=== PATIENT | female | born 1995 ===

== ENCOUNTER 2017-02-19 20:43 | Emergency (ER) | payer BC, OTHER ==
[2017-02-19 20:55] VITALS: BP 124/87; PULSE 86; RESP 18; TEMP 98; O2SAT 100
--- NOTE | 2017-02-19 21:15 | C.PDOC ---
History Of Present Illness 21 yo female w/o significant PMHx come in for evaluation of palmar discoloration intermittent for past few months. Pt reports, "noted some brown spots on her left palm few days ago, comes and goes". Otherwise, pt denies any other associated symptoms or any other active complaints-fever, chills, recent illness or abx use, headache, dizziness, visual changes, focal deficits, neck pain, CP, SOB, dyspnea, diaphoresis, abd. pain, N/V/D, UTI sx. At present time, pt reports, skin discoloration moderate improved " and not much to show". Ambulate to ED for evaluation, not in any apparent distress. Time Seen by Provider: 02/19/17 20:57 Chief Complaint (Nursing): Abnormal Skin Integrity History Per: Patient Onset/Duration Of Symptoms: Intermittent Episodes Past Medical History Reviewed: Historical Data, Nursing Documentation, Vital Signs Vital Signs: Last Vital Signs Temp 98 F 02/19/17 20:52 Pulse 86 02/19/17 20:52 Resp 18 02/19/17 20:52 BP 124/87 02/19/17 20:52 Pulse Ox 100 02/19/17 20:52 Surgical History: Family History: States: Unknown Family Hx - Social History Hx Tobacco Use: No Hx Alcohol Use: Yes Hx Substance Use: No - Immunization History Hx Tetanus Toxoid Vaccination: (UNK) Hx Influenza Vaccination: No Hx Pneumococcal Vaccination: No Review Of Systems Except As Marked, All Systems Reviewed And Found Negative. Constitutional: Negative for: Fever, Chills Eyes: Negative for: Vision Change, Redness ENT: Negative for: Throat Pain Cardiovascular: Negative for: Chest Pain Respiratory: Negative for: Cough, Shortness of Breath Gastrointestinal: Negative for: Nausea, Vomiting, Abdominal Pain, Diarrhea Genitourinary: Negative for: Dysuria Musculoskeletal: Negative for: Neck Pain, Back Pain Skin: Positive for: Rash Neurological: Negative for: Weakness, Numbness, Altered Mental Status, Headache , Dizziness Physical Exam - Physical Exam Appears: Well, No Acute Distress Skin: Normal Color, Warm, Dry, Other (one small light yellow spot/skin discoloration note dto Left palm. NO edema, no erythema, no flactulance.) Eye(s): bilateral: PERRL Nose: No Discharge Oral Mucosa: Moist, No Drooling Tongue: Normal Appearing Lips: Normal Appearing Throat: Normal Neck: Supple Cardiovascular: Rhythm Regular Respiratory: Normal Breath Sounds Gastrointestinal/Abdominal: Normal Exam, Soft, No Tenderness Back: No CVA Tenderness Extremity: Normal ROM (Left hand, no neurovascular deficits.), No Tenderness, Capillary Refill (less than 2sec to left hand), No Deformity Neurological/Psych: Oriented x3, Normal Speech ED Course And Treatment O2 Sat by Pulse Oximetry: 100 Pulse Ox Interpretation: Normal Progress Note: On re-evaluation, pt is afebrile, hemodynamicaly stable. Non- toxic. PulsEOx 100% RA. ENT: no acute finidngs. neck: (-) meningeal sign. Lungs: CTA B/L, BS equal B/L. SKin: small skin disoloration noted to left palm. NO cellulitis. FAROM, no neurovascular deficist to Left hand. Pt advised and ref. to f/u with PMD, Derm in 2-3 days for re-eval. return to ED if any worsening or new changes. Disposition Counseled Patient/Family Regarding: Diagnosis, Need For Followup - Disposition Referrals: Non [facility] Provider, [Primary Care Provider] - [facility] [Outside] Disposition: HOME/ ROUTINE Disposition Time: 21:11 Condition: STABLE Instructions: Acute Rash (ED) - Clinical Impression Clinical Impression: Rash
== END 2017-02-19 21:16 | disposition home or self-care (01) ==
LOC: C.ER 20:43 → SUPCPDRO 20:43 → C.ER 21:16
DX: R21 Rash and other nonspecific skin eruption (principal)

== ENCOUNTER 2017-06-08 19:46 | Emergency (ER) | payer BC, OTHER ==
[2017-06-08 20:02] VITALS: TEMP 98; O2SAT 100
[2017-06-08 20:52] LABS: RBC URINE 2 /hpf (0-3); URINE BACTERIA OCC (<OCC); URINE BILIRUBIN NEGATIVE (NEGATIVE); URINE BLOOD NEGATIVE (NEGATIVE); URINE COLOR Yellow (YELLOW); URINE GLUCOSE (UA) NORMAL (Normal); URINE KETONE NEGATIVE (NEGATIVE); URINE LEUKOCYTE ESTERASE NEG Leu/uL (Negative); URINE PROTEIN NEGATIVE (NEGATIVE); WBC URINE 3 /hpf (0-5)
--- NOTE | 2017-06-08 21:26 | C.PDOC ---
History Of Present Illness The patient presents today for evaluation of right lower quadrant abdominal pain , present for the past couple days. She reports the pain is 4/10 and describes it as dull and aching. She denies associated fever, chills, nausea, vomiting, dysuria. She offers no other medical complaints. Time Seen by Provider: 06/08/17 21:25 Chief Complaint (Nursing): Abdominal Pain History Per: Patient History/Exam Limitations: no limitations Onset/Duration Of Symptoms: Days Current Symptoms Are (Timing): Still Present Severity: Moderate Pain Scale Rating Of: 4 Location Of Pain/Discomfort: RLQ Radiation Of Pain To:: None Quality Of Discomfort: Dull, Aching, "Pain" Associated Symptoms: denies: Fever, Chills, Nausea, Vomiting, Urinary Symptoms Exacerbating Factors: None Alleviating Factors: None Recent travel outside of the [place]: No Additional History Per: Patient Abnormal Vaginal Bleeding: No Past Medical History Reviewed: Historical Data, Nursing Documentation, Vital Signs Vital Signs: Last Vital Signs Temp 98.0 F 06/08/17 19:59 Pulse 70 06/08/17 23:16 Resp 16 06/08/17 23:16 BP 99/63 L 06/08/17 23:16 Pulse Ox 100 06/08/17 23:19 - Medical History PMH: No Chronic Diseases Surgical History: Family History: States: No Known Family Hx, Unknown Family Hx - Social History Hx Tobacco Use: No Hx Alcohol Use: Yes Hx Substance Use: No - Immunization History Hx Tetanus Toxoid Vaccination: (UNK) Hx Influenza Vaccination: No Hx Pneumococcal Vaccination: No Review Of Systems Constitutional: Negative for: Fever, Chills Gastrointestinal: Positive for: Abdominal Pain. Negative for: Nausea, Vomiting Genitourinary: Negative for: Dysuria Physical Exam - Physical Exam Appears: Non-toxic, No Acute Distress Skin: Warm, Dry Head: Normacephalic Oral Mucosa: Moist Neck: Supple Cardiovascular: Rhythm Regular Respiratory: No Decreased Breath Sounds, No Accessory Muscle Use Gastrointestinal/Abdominal: Bowel Sounds, Soft, Tenderness (right lower quadrant ), No Guarding, No Rebound Extremity: No Deformity, No Swelling Neurological/Psych: Oriented x3, Normal Speech, Normal Cognition ED Course And Treatment - Laboratory Results Result Diagrams: 06/08/17 21:53 06/08/17 21:53 O2 Sat by Pulse Oximetry: 100 (RA) Pulse Ox Interpretation: Normal - CT Scan/US CT Abdomen Other Rad Studies (CT/US): Read By Radiologist CT/US Interpretation: EXAM: CT Abdomen and Pelvis With Intravenous Contrast. CLINICAL HISTORY: 21 years old, female; Pain; Abdominal pain; Flank; Right lower quadrant (rlq); Additional info: Rlq. abdominal pain. TECHNIQUE: Axial computed tomography images of the abdomen and pelvis with intravenous contrast. All CT. scans at this facility use one or more dose reduction techniques, viz. : automated exposure control;. ma/kV adjustment per patient size (including targeted exams where dose is matched to indication; i.e. head); or iterative reconstruction technique. Coronal and sagittal reformatted images were created and reviewed. CONTRAST: 100 mL of omnipaque 350 administered intravenously. COMPARISON: No relevant prior studies available. FINDINGS: Lower thorax: No acute findings. ABDOMEN: Liver: Unremarkable. No mass. Gallbladder and bile ducts: No calcified stones. No ductal dilation. Pancreas: No ductal dilation. No mass. Spleen: No splenomegaly. Adrenals: No mass. Kidneys and ureters: No mass. No hydronephrosis. Stomach and bowel: No definite mural thickening. No obstruction. Appendix: Normal caliber. No definite inflammation. PELVIS: Bladder: Unremarkable. Reproductive: Unremarkable as visualized. ABDOMEN and PELVIS: Intraperitoneal space: No significant fluid collection. No free air. Bones/joints: Mild curvature of spine. No acute fracture. Soft tissues: Unremarkable. Vasculature: Unremarkable. No aneurysm. Lymph nodes: No pathologically enlarged lymph nodes. IMPRESSION: 1. No definite acute intraabdominal abnormality. Progress Note: Labs, pepcid 20 mg and IV fluids ordered Reevaluation Time: 23:42 Reassessment Condition: Improved Medical Decision Making Medical Decision Making: Upon provider reevaluation patient is feeling better, is medically stable, and requires no further treatment in the ED at this time. Patient will be discharged home with Rx for macrobid . Counseling was provided and all questions were answered regarding diagnosis and need for follow up with dr tan. There is agreement to discharge plan. Return if symptoms persist or worsen. Disposition Counseled Patient/Family Regarding: Studies Performed, Diagnosis, Need For Followup, Rx Given - Disposition Referrals: Jose A Stapleton MD [Non-Staff] - Disposition: HOME/ ROUTINE Disposition Time: 21:25 Condition: FAIR Prescriptions: Nitrofurantoin Macrocrystals [Macrobid] 1 cap PO BID #14 cap Instructions: Abdominal Pain (ED), Dysuria (ED) Forms: [facility] ([place]) - Clinical Impression Clinical Impression: Abdominal pain - Scribe Statement The provider has reviewed the documentation as recorded by the Feribe Celine Saenz Provider Attestation: All medical record entries made by the Feribe were at my direction and personally dictated by me. I have reviewed the chart and agree that the record accurately reflects my personal performance of the history, physical exam, medical decision making, and the department course for this patient. I have also personally directed, reviewed, and agree with the discharge instructions and disposition.
[2017-06-08] MEDS ORDERED: Sodium Chloride 0.9% 1,000 ML IV ONE (21:35)
[2017-06-08] MEDS ORDERED: Sodium Chloride 0.9% 1,000 ML ONE (21:39)
[2017-06-08 22:04] LABS: CHLORIDE 105 mmol/L (98-107); SODIUM 138 mmol/L (132-148)
[2017-06-08 22:05] LABS: POTASSIUM 3.9 mmol/L (3.6-5.2)
[2017-06-08 22:06] LABS: GFR AFRICAN-AMERICAN > 60
[2017-06-08 22:07] LABS: ALB/GLOB RATIO 1.4 (1.0-2.1); ALKALINE PHOSPHATASE 60 U/L (38-126); ALT/SGPT 24 U/L (9-52); AST/SGOT 19 U/L (14-36); BILIRUBIN,TOTAL 0.5 mg/dL (0.2-1.3); BLOOD UREA NITROGEN 13 mg/dL (7-17); CALCIUM 8.3 mg/dl (8.6-10.4); CARBON DIOXIDE 24 mmol/L (22-30); GLUCOSE,RANDOM 80 mg/dL (65-105); TOTAL PROTEIN 7.1 g/dL (6.3-8.3)
[2017-06-08 22:09] LABS: BASO % 0.7 % (0.0-2.0); EOS # 0.1 K/uL (0.0-0.7); EOS % 1.4 % (0.0-4.0); HEMATOCRIT 40.7 % (34.0-47.0); LYMPH # 2.5 K/uL (1.0-4.3); LYMPH % 37.9 % (20.0-40.0); MEAN CORPUSCULAR HEMOGLOBIN 30.9 pg (27.0-31.0); MEAN CORPUSCULAR HGB CONC 33.6 g/dL (33.0-37.0); MONO # 0.4 K/uL (0.0-0.8); MONO % 6.1 % (0.0-10.0); RED CELL DISTRIBUTION WIDTH 12.5 % (11.5-14.5); WHITE BLOOD COUNT 6.7 K/uL (4.8-10.8)
[2017-06-08] MEDS ORDERED: Iohexol 350mg/ml 100 ML ONE (22:45)
--- NOTE | 2017-06-08 23:13 | CT ---
EXAM: CT Abdomen and Pelvis With Intravenous Contrast CLINICAL HISTORY: 21 years old, female; Pain; Abdominal pain; Flank; Right lower quadrant (rlq); Additional info: Rlq abdominal pain TECHNIQUE: Axial computed tomography images of the abdomen and pelvis with intravenous contrast. All CT scans at this facility use one or more dose reduction techniques, viz.: automated exposure control; ma/kV adjustment per patient size (including targeted exams where dose is matched to indication; i.e. head); or iterative reconstruction technique. Coronal and sagittal reformatted images were created and reviewed. CONTRAST: 100 mL of omnipaque 350 administered intravenously. COMPARISON: No relevant prior studies available. FINDINGS: Lower thorax: No acute findings. ABDOMEN: Liver: Unremarkable. No mass. Gallbladder and bile ducts: No calcified stones. No ductal dilation. Pancreas: No ductal dilation. No mass. Spleen: No splenomegaly. Adrenals: No mass. Kidneys and ureters: No mass. No hydronephrosis. Stomach and bowel: No definite mural thickening. No obstruction. Appendix: Normal caliber. No definite inflammation. PELVIS: Bladder: Unremarkable. Reproductive: Unremarkable as visualized. ABDOMEN and PELVIS: Intraperitoneal space: No significant fluid collection. No free air. Bones/joints: Mild curvature of spine. No acute fracture. Soft tissues: Unremarkable. Vasculature: Unremarkable. No aneurysm. Lymph nodes: No pathologically enlarged lymph nodes. IMPRESSION: 1. No definite acute intraabdominal abnormality.
[2017-06-08 23:17] VITALS: BP 99/63; PULSE 70
[2017-06-08 23:51] VITALS: RESP 18
== END 2017-06-08 23:51 | disposition home or self-care (01) ==
LOC: C.ER 19:46
DX: R10.31 Right lower quadrant pain (principal)
CPT/HCPCS: 74177; 80053; 81001; 83690; 84703; 85025; 87086; 96361; 96374; 99285; J7040; Q9967